=== PATIENT | female | born 1965 | race Caucasian/White ===

== ENCOUNTER 2017-07-24 07:29 | Day surgery (SDC) | payer BC ==
--- NOTE | 2017-07-14 13:40 | HP ---
AMENDED REPORT NOW INCLUDES COSIGNER DESIGNATION - ESIGNED BEFORE ADJUSTMENT CC: Dr. Jaspreet Riggins * PREOPERATIVE HISTORY AND PHYSICAL: DATE OF ADMISSION: This patient is scheduled for same-day surgery admission by Dr. Gould on 07/24/17. DATE OF PREOPERATIVE HISTORY AND PHYSICAL EXAMINATION: 07/14/17. ATTENDING SURGEON: Dr. Amanda Gould * (dictated by Jory Daugherty NP). CHIEF COMPLAINT: Left breast cancer. HISTORY OF PRESENT ILLNESS: The patient is a 52-year-old female recently evaluated by Dr. Gould for left breast cancer. 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 She denies any breast pain or nipple discharge. Her mother was diagnosed with breast cancer at age 72; the patient had her first menstrual period at age 13 and her first delivery at age 30; she is not currently taking any hormone replacement therapy. She had taken control pills for more than 10 years. Of note, her father's family history is significant for Helton syndrome. Dr. Gould has examined the patient and reviewed the findings with her and has recommended mammo-guided needle localization excision of the left breast cancer and sentinel lymph node biopsy as the same-day surgery procedure. Dr. Gould discussed the nature of the surgical procedure, the relevant risks and benefits , and today I reviewed the typical postoperative care and recovery. The patient has had a chance to ask questions and stated that she understands the information and is satisfied with the answers given to her questions. She will sign surgical consent on the day of surgery. PAST MEDICAL HISTORY: Significant for hypertension and obesity. PAST SURGICAL HISTORY: section in 1995. OB HISTORY: 1, para 1. Last menstrual period ended on 07/05/17. She is up-to-date with pelvic and Pap smear. She denies any perimenopausal symptoms. MEDICATIONS: 1. Lisinopril 10 mg p.o. daily. 2. Multivitamin 1 tablet daily. 3. Claritin-D 10/240 mg 1 tablet daily. 4. She also takes a calcium supplement daily. ALLERGIES: PENICILLIN has caused rash. FAMILY HISTORY: Mother had a history of breast cancer at age 72; father had deep vein thrombosis in the lower extremities. Father's family had history of Helton syndrome. No known anesthesia complications or bleeding tendencies. SOCIAL HISTORY: She is single and lives with her 22-year-old son. She is a nonsmoker. She is employed as an human resource officer. She drinks alcohol socially and denies the use of other substances. REVIEW OF SYSTEMS: Constitutional: No fevers, chills, recent infections, or excessive fatigue. Endocrine: No diabetes or thyroid disease or hormone replacement therapy. Hematologic: No easy bruising or bleeding. No previous blood transfusions. Breasts: Abnormal left breast lesion. Respiratory: No dyspnea on exertion. No chronic cough. Cardiovascular: No anginal chest pain or palpitations. Gastrointestinal: No nausea, vomiting, diarrhea, GI bleeding , or constipation. Genitourinary: No dysuria. History of hematuria, followed by Dr. Jennings. Musculoskeletal: Negative for back or joint pain. Neurologic: No headache or blurred vision. No areas of focal weakness or numbness. General : No previous anesthesia complications other than a prolonged recovery after section. No personal history of deep vein thrombosis or pulmonary embolism. PHYSICAL EXAMINATION GENERAL SURVEY: The patient is a 52-year-old obese female, well-developed, well - nourished, in no acute distress. VITAL SIGNS: Height 64 inches, weight 230 pounds, body mass index 39.5. Blood pressure 130/82, pulse 88 and regular, respiratory rate 16, temperature 97.2 tympanic. HEENT: Benign. NECK: Supple. No cervical lymphadenopathy. No thyromegaly. BACK: No CVA tenderness. LUNGS: Breath sounds bilaterally clear and equal. HEART: Regular rate and rhythm. No murmurs or rubs appreciated. BREAST EXAM: Right breast slightly larger. No masses noted in the right breast. No masses noted in the left breast. Well-healed core biopsy sites, lateral aspect of the left breast. No infection. Nipples are normal to inspection. No palpable supraclavicular lymphadenopathy. No palpable axillary lymphadenopathy. ABDOMEN: Active bowel sounds, soft, nondistended, nontender throughout. No obvious masses, organomegaly, or evidence of umbilical hernia. PELVIC AND RECTAL EXAMS: Done within the past 2 months, not repeated. EXTREMITIES: Warm without erythema or skin ulceration. NEUROLOGIC: Alert and oriented x3. Steady gait. SKIN: Warm, dry, and intact. IMPRESSION: Left breast cancer. PLAN: Same-day surgery admission to Dr. Gould's service on 07/24/17, for mammo-guided needle localization, excision of left breast cancer and sentinel lymph node biopsy. PIYUSH DAUGHERTY, TRANSMISSIONS SYSTEMS OPERATOR [id number]/[facility] #: [id number] [facility]ATRIC CENTERCharline
[~2017-07-24 07:29] MED LIST: Buffered Lidocaine 0.9% SYRIN* 5 ML/SYR SYRINGE INTRADERM ONE; Dexamethasone IV* 4 MG/ML 1 ML (4 MG) IV SLOW PU ONE; Famotidine TAB* 20 MG PO ONE
[2017-07-24] MEDS ORDERED: Buffered Lidocaine 0.9% SYRIN* 5 ML/SYR SYRINGE ONE (07:34)
[2017-07-24] MEDS ORDERED: Lidocaine 2.5%/Prilocain 2.5%* 5 GM TUBE ONE (07:34)
--- NOTE | 2017-07-24 09:09 | RAD ---
Indication: Breast carcinoma 1:00 position LEFT breast. Comparison: June 25, 2017 ultrasound and mammogram. Following discussion of benefits and risks including but not limited to pain, infection, and bleeding written informed consent was obtained. The breast was marked. PROCEDURE: A time out was performed. Approximate 0.8 cm taller than wide hypoechoic mass containing a biopsy marker clip identified at the 1:00 position. Lateral to medial approach selected. The skin was cleansed with antiseptic. 1% buffered Lidocaine was infiltrated into the skin and subcutaneous tissues. Under direct ultrasound visualization a 7.5cm 20g Camarena needle was advanced through the targeted lesion. The needle was removed and the hook wire deployed. Post deployment CC and ML views obtained and documented in the localization wire corresponding with the biopsy marker clip. The deep margin of the localization wire extends only 1 cm beyond the biopsy marker clip. The free end of the wire was taped to the skin. The patient tolerated the procedure without difficult and there were no immediate complications. IMPRESSION: Successful ultrasound guided wire localization 1:00 position lesion LEFT breast.
[2017-07-24] MEDS ORDERED: Dexamethasone IV* 4 MG/ML 1 ML (4 MG) ONE (10:01)
[2017-07-24] MEDS ORDERED: Famotidine TAB* 20 MG ONE (10:01)
[2017-07-24] MEDS ORDERED: Heparin VIAL(*) 5000 UNITS/ML VIAL (FIVE THOUSAND) ONE (10:02)
[2017-07-24] MEDS ORDERED: Clindamycin 900 MG IVPREMIX(* 900 MG/50 ML SDV IV ONE (10:02)
--- NOTE | 2017-07-24 11:03 | RAD ---
INDICATION: LEFT breast cancer. PROCEDURE: The risks and benefits of the procedure were explained to the patient. Written informed consent was obtained. 0.315 mCi total of filtered sulfur colloid were injected intradermal in 4 divided doses along the areolar margin flanking the 1:00 position tumor site. Spot images?were?obtained?of?the?thorax with the ipsilateral arm over the head. Solitary ipsilateral axillary sentinal node marked on the skin utilizing a point source. IMPRESSION: Successful lymphoscintigraphy LEFT breast.
[2017-07-24] MEDS ORDERED: Bupivacaine 0.25% SDV* 30 ML ONE (13:16)
[2017-07-24] MEDS ORDERED: Lidocaine 1% INJ* 10 MG/ML 30 ML SDV ONE (13:16)
[2017-07-24] MEDS ORDERED: Lidocaine 2% PF * 5 ML VIAL ONE (13:33)
[2017-07-24] MEDS ORDERED: Propofol* 10 MG/ML 20 ML BTL IV PUSH ONE (13:33)
[2017-07-24] MEDS ORDERED: fentaNYL* 50 MCG/ML 2 ML VIAL (100 MCG VIAL) ONE ×2 (13:35→15:25)
[2017-07-24] MEDS ORDERED: Midazolam* 1 MG/ML 2 ML VIAL (2 MG) ONE (13:35)
[2017-07-24] MEDS ORDERED: fentaNYL* 50 MCG/ML 2 ML VIAL (100 MCG VIAL) IV PRN (13:38)
[2017-07-24] MEDS ORDERED: PROCHLORPERAZINE INJ 5 MG/ML 2 ML VIAL IV PRN (13:38)
[2017-07-24] MEDS ORDERED: HYDROcodone/ACETAMIN 5-325 MG* 1 TAB PO PRN (13:38)
[2017-07-24] MEDS ORDERED: oxyCODONE/Acetamin 5/325 MG* TAB PO PRN (13:38)
[2017-07-24] MEDS ORDERED: Naloxone* 0.4 MG/ML 1 ML VIAL IV PRN (13:38)
[2017-07-24] MEDS ORDERED: Ondansetron INJ* 2 MG/ML VIAL ONE (14:55)
[2017-07-24] MEDS ORDERED: Ibuprofen TAB* 600 MG ONE (16:56)
[2017-07-24 17:23] VITALS: BP 137/88
--- NOTE | 2017-07-24 22:20 | OP ---
CC: [facility]; Dr. Jaspreet Riggins OPERATIVE REPORT: DATE OF OPERATION: 07/24/17 DATE OF : 67 SURGEON: Amanda Gould MD COLOR MAKER DYER: Jory Concepcion NP PRE-OP DIAGNOSIS: Left breast cancer. POST-OP DIAGNOSIS: Left breast cancer. OPERATIVE PROCEDURE: Needle localization excision of left breast cancer and sentinel lymph node biopsy. INDICATIONS: Ms. Maxwell is a 52-year-old woman recently diagnosed with breast cancer, who opted for needle localization excision biopsy. DESCRIPTION OF PROCEDURE: She was brought to the operating room after having had wire localization in the morning and sentinel lymph node localization. On the morning of the procedure, she was placed on the OR table in a supine position and given general anesthesia. The left breast was prepped and draped in the usual sterile fashion along with the axilla taking care not to dislodge the localizing wire. After infiltrating with local anesthetic, a curvilinear elliptical incision encompassing the wire was made. Subcutaneous tissue was then divided with electrocautery to excise the massive tissue from around the wire. This was marked in the usual fashion and handed off as a specimen. Hemostasis was assured with electrocautery and then it was recognized that the sentinel lymph node was within reach of the breast incision, so the decision was made to access the axilla from the breast site. Using electrocautery, a route to the axilla was opened up by incising along the pectoralis muscle. The axillary fat pad was reached after using some electrocautery and grasped using the navigator with some effort, the sentinel lymph node was identified. Its in situ counts were around 1587 and then when it was excised which was achieved with clips to control small lymphatic and blood vessels that approached the gland. The ex vivo counts were 8900. The remaining axillary bed counts were 1. Then clips were placed in the breast cavity to derick its confines. Additional local was instilled into the both regions of the axilla and the tumor bed and then closure was accomplished. This was done with 3-0 Vicryl to reapproximate the subcutaneous tissue and the skin was closed with 4-0 Prolene in a subcuticular fashion. Steri-Strips and a dry sterile dressing were applied. All sponge and instrument counts were correct. The patient tolerated the procedure well and was transferred to Recovery in a stable condition. Please note that the specimen report came back from Radiology indicating that the specimen contained the abnormality and the specimen was sent on to the lab for participation in the research protocol. [id number]/[facility] #: [id number] MTDD
== END 2017-07-24 17:35 | disposition home or self-care (01) ==
LOC: SDS 07:29
PROVIDERS: ATTEND Surgery
DX: C50.812 Malignant neoplasm of overlapping sites of left female breast (principal); I10 Essential (primary) hypertension; E66.9 Obesity, unspecified
CPT/HCPCS: 77061; 78195; 81025; 88307; A9270-GY; A9541; G0279; J1100; J1644; J2250; J2405; J2704; J3010